=== PATIENT | female | born 1990 | race Caucasian/White ===

== ENCOUNTER 2023-11-20 21:17 | Emergency (ER) | payer OTHER, SELFPAY ==
[2023-11-20 21:19] VITALS: BP 151/94
--- NOTE | 2023-11-20 21:49 | ED.GENMED ---
History of Present Illness
General
Chief Complaint: Musculo-Skeletal Complaint
Source: patient
Exam Limitations: none
Time Seen by Provider: 11/20/23 21:32
Travel History
Have you had any contact with someone who has COVID-19?: No
Do you have any symptoms of coronavirus? Fever > 100 degrees, chills, cough, shortness of breath, sore throat, loss of taste or smell, muscle aches, or headache?: No
History of Present Illness
History of Present Illness:
This is a 33 year old female that comes in with c/o right hip pain going down the front of her let to the knee. Patient states that she went on a walk yesterday with her son that she always does. States that she didn't start with pain till later in
the night. 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 States that she has not fallen and there was no injury. States that she took Advil at 4:30pm but this did not help. States that she
is nauseated from the pain and has a headache. Denies any fever, chills, chest pain, SOB, vomiting, diarrhea, dizziness, urinary burning.
Past History
Past History
ED Past Medical History: Other (Headaches, )
ED Past Surgical History: None
Social History
Tobacco: Former smoker
Alcohol: Occasional
Personal:
Living: with family
Review of Systems
Review of Systems
All Other Systems: ROS reviewed and negative except as documented in HPI and ROS
Constitutional: Reports no symptoms; Denies fever or chills
EENT: Reports no symptoms
Respiratory: Reports no symptoms; Denies cough or trouble breathing
Cardiac: Reports no symptoms; Denies chest pain
ABD/GI: Reports nausea; Denies abdominal pain, vomiting or diarrhea
: Reports no symptoms; Denies dysuria, frequency or urgency
Musculoskeletal: Reports joint pain (Right hip pain)
Skin: Reports no symptoms
Neurological: Reports headache; Denies dizzy
Psychiatric: Reports no symptoms
Phy Exam
General Physical Exam
General Presentation: moderate distress
General age: appears stated age
General Skin: warm and dry
General Habitus: normal
General Mental: alert and tearful
General Hydration: appears well hydrated
ENT Exam
ENT Exam: TM's normal, pharynx normal and neck supple
Eye Exam
Eye Exam: EOMI
Cardiovascular Exam
Cardiovascular Exam: regular rate/rhythm, no edema, no murmur and normal peripheral pulses
Pulmonary Exam
Pulmonary Exam: lungs clear, no respiratory distress, no rales, chest non tender, no crackles, no rhonchi, no wheezing and no cough
Gastrointestinal Exam
Gastrointestinal Exam: normal bowel sounds, soft, no organomegaly, no pulsatile mass, non distended and tender (right lower abd tenderness with palpation)
Musculoskeletal Exam
Musculoskeletal Exam: other (Slight tenderness of the right posterior hip, Pain with flexion of the knee into the hip)
Skin Exam
Skin Exam: normal color, warm/dry, no rash and no petechia
Psychiatric Exam
Psychiatric Exam: normal mood/affect
Course
Orders/Labs/Results
Orders:
Orders
11/20/23 21:22
CR Femur - Right Min 2 Vw Urgent
Comment:
Reason For Exam: pain
CR Hip - RT w/wo Pel 2-3 Vw* Urgent
Comment:
Reason For Exam: pain
Include a pelvis x-ray?: No
11/20/23 21:46
0.9% Sodium Chloride 1000 ml [Nss] 1,000 ml IV BOLUS
HYDROmorphone [Dilaudid] 1 mg IV NOW STA
Ondansetron Injectable [Zofran] 4 mg IV NOW STA
US Pelvis Only (non-obstetric) Urgent
Comment:
Reason For Exam: Right lower abd pain
11/20/23 21:47
Test Result ONCE
11/20/23 21:48
CT Abd/pelvis W Iv Cont Urgent
Comment:
Reason For Exam: right lower abd pain
11/20/23 22:29
CRP [C-Reactive Protein] Urgent
Complete Blood Count/With Diff Urgent
Comprehensive Metabolic Panel Urgent
HCG, Serum Qualitative Screen Urgent
Lyme Progressive Urgent
Date Specimen was Collected: 11/20/23
Time Specimen was Collected: 22:29
Comment: ADDED
Sed Rate [Erythrocyte Sed Rate] Urgent
11/21/23 00:02
Add On- LAB Urgent
Tests Added?: Lyme Titer
11/21/23 00:08
Ketorolac [Toradol] 30 mg .ROUTE .STK-MED ONE
11/21/23 00:10
Ketorolac [Toradol] 30 mg IV NOW STA
Abnormal Lab Results
11/20/23
22:29
WBC 14.7 H 10^3/uL
(4.8-10.8)
Abs Immat Gran (auto) 0.1 H 10^3/uL
(0-0.05)
Absolute Neuts (auto) 11.2 H 10^3/uL
(1.4-6.5)
Absolute Monos (auto) 1.0 H 10^3/uL
(0.1-0.6)
Neutrophils % 76.0 H %
(42.2-75.2)
Lymphocytes % 14.3 L %
(20.5-51.1)
Glucose 113 H mg/dl
(70-99)
C-Reactive Protein 10.40 H mg/L
(0.0-10.00)
11/20/23 22:29
11/20/23 22:29
Leukocytosis ( consistent with prior labs), Glucose nonfasting. Sed rate normal at 7, CRP very slightly elevated. HCG negative.
Vital Signs
Initial and Last Documented VS:
Initial Vital Signs
Temp Pulse Resp BP Pulse Ox
98.3 F 90 18 151/94 99
11/20/23 21:19 11/20/23 21:19 11/20/23 21:19 11/20/23 21:19 11/20/23 21:19
Last Documented Vital Signs
Temp Pulse Resp BP Pulse Ox
98.4 F 64 14 122/73 96
11/20/23 23:46 11/21/23 00:45 11/21/23 00:45 11/21/23 00:00 11/21/23 00:45
MDM/Problems Addressed
Differential Diagnosis Includes:
Appendicitis. Ovarian Torsion. Hip fracture
MDM/Problems Addressed:
This is a 33 year old female that comes in with r/o right hip pain. States that the pain started yesterday in the evening. Today she had a hard time getting up and that the pain is not any better after advil. States that there was no fall or injury.
Will check labs, US and CT scan of abd. IV fluids and pain medication.
Back into see patient. Explained that her Ct is negative for appendicitis and otherwise normal. US is negative for any torsion or acute process. Explained to patient that her X-rays were also normal. This may be a pulled groin muscle. Patient to
rest and use Ibuprofen 600mg every 6 hours with food and alternate with Tylenol 1000mg every 6 hours for pain. Follow up with he PCP and/or regulatory compliance specialist. Patient to return with any fever, increased or changing pain.
Chronic conditions affecting care:
NA
Acute Exacerbation and/or Progression of Chronic Illness:
NA
*Radiology
Radiology exam reviewed: radiology read reviewed (US night hawk-Transabdominal pelvic ultrasound No comparison exam. Uterus and ovaries are normal in contour and echogenicity. Endometrial canal measures 2.2mm. Ovarian blood flow present bilaterally.
CT abd/pelvis night hawk- Normal appendix. Gallbladder is unremarkable. No bowel or renal ) and other (CT cont- or renal obstructionl Uterus and adnexa are unremarkable. NO free air or free fluid. Small fat-containing umbilical hernia. )
*Pulse Oximetry
Patient hypoxic: no
*EKG
Interpreted by ED Provider?: NA
Rate: EKG- N/A
*Mingler Operator Interpretation
Rate: Mingler Operator- N/A
*Critical Care Note
Total Time (30-74mins, 75-104mins- exclusive of procedures): Not Applicable
ED Attending Note
-
Portions of this chart may have been created with voice recognition software.� Occasional wrong word or��sound alike� substitutions may have occurred due to the inherent limitations of voice recognition software.
Discharge Plan
Departure
Patient Disposition: Home (Routine Discharge)
Date of Disposition: 11/21/23
Time of Disposition: 00:32
Patient with high blood pressure during this ER visit?: No
Condition: Good
Covid-19: Not Applicable
Discharge Problem:
Acute pain of right hip
Instructions: Hip Pain ED
Prescriptions:
No Action
Vitamin 1 EACH tablet
1 tab PO DAILY
sennosides-docusate sodium [Stool Softener-Stimulant Laxat] 8.6-50 mg Tablet
1 tab PO DAILYPRN PRN (Reason: constipation) Qty: 0 0RF
ibuprofen 600 mg Tablet
400 mg PO Q4HPRN PRN (Reason: moderate pain/cramps) Qty: 0 0RF
acetaminophen 325 mg Tablet
650 mg PO Q4HPRN PRN (Reason: mild pain) Qty: 0 0RF
Referrals:
UNKNOWN - PT DOES,NOT KNOW [Unknown Provider] -
Activity Restrictions/Additional Instructions:
As discussed, your blood work shows that your White blood cell count is elevated but this goes along with your prior labs. Your X-rays are negative. Your US is negative for any ovarian torsion and otherwise is normal. Your CT is negative for
appendicitis and otherwise normal. This may be a pulled groin muscle. Please use Tylenol 1000mg every 6 hours for pain and alternate with Ibuprofen 600mg every 6 hours with food. Follow up with the Family doctor for recheck or the Orthopedic
specialist. You have had a Lyme titer sent and if this would come back positive, you will be called. IF YOU HAVE INCREASED OR CHANGING PAIN, FEVER, OR YOU HAVE ANY OTHER CONCERNS PLEASE RETURN TO THE EMERGENCY ROOM.
Interventions
Interventions:
*Risk Screen - Suicide Last Done: 11/20/23 21:19
*General Assessment Last Done: 11/20/23 21:19
*Neglect/Abuse Screening Last Done: 11/20/23 21:19
ED- Fall Risk Assessment Last Done: 11/21/23 01:05
*Nursing Disposition Last Done: 11/21/23 01:05
ED-Musculoskeletal Assessment Last Done: 11/20/23 23:46
Discharge Date and Time
Discharge Date/Time: 11/21/23 01:08
Print Language: BENGALI
[2023-11-20] MEDS: DILAUDID 1 MG IV (22:29)
[2023-11-20] MEDS: ZOFRAN 4 MG IV (22:29)
[2023-11-20 22:34] VITALS: BP 126/81
[2023-11-20 22:38] LABS: % Basophils 0.7 % (0-2); % Eosinophils 1.5 % (0-6); % Immature Granulocytes 0.5 % (0-0.5); % Lymphocytes 14.3 % (20.5-51.1); Absolute Basophils 0.1 10^3/uL (0-0.2); Absolute Eosinophils 0.2 10^3/uL (0-0.7); Absolute Immature Granulocytes 0.1 10^3/uL (0-0.05); Absolute Lymphocytes 2.1 10^3/uL (1.2-3.4); Absolute Neutrophils 11.2 10^3/uL (1.4-6.5); Hematocrit 37.6 % (37.0-47.0); Mean Corp Hgb Conc. 34.6 g/dL (33.0-37.0); Mean Corpuscular Hgb 29.8 pg (27.0-31.0); Mean Corpuscular Volume 86.2 fL (81.0-99.0); Nucleated Red Blood Cells % 0 %; Platelet Count 266 10^3/uL (130-400); Red Blood Cell Count 4.36 10^6/uL (4.20-5.40); Red Cell Dist. Width 13.4 % (11.5-14.5); White Blood Cell Count 14.7 10^3/uL (4.8-10.8)
[2023-11-20 22:49] LABS: HCG, Serum Qualitative Screen Negative
[2023-11-20 22:53] LABS: ALT (SGPT) 15 U/L (0-35); AST (SGOT) 28 U/L (14-36); Albumin 4.7 g/dl (3.5-5.0); Alkaline Phosphatase 71 U/L (38-126); Blood Urea Nitrogen 9 mg/dl (7-17); Calcium 9.9 mg/dl (8.4-10.2); Carbon Dioxide 24 mmol/L (22-30); Chloride 104 mmol/L (98-107); Glucose 113 mg/dl (70-99); Potassium 4.3 mmol/L (3.5-5.1); Sodium 139 mmol/L (135-145); Total Bilirubin 0.4 mg/dl (0.2-1.3); Total Protein 7.8 g/dl (6.3-8.2); eGFR > 60.00
[2023-11-20 23:36] LABS: Erythrocyte Sed Rate 7 mm/hour (0-20)
[2023-11-20] MEDS: NSS 1000 IV (23:40)
[2023-11-20 23:42] VITALS: BP 123/74
[2023-11-20 23:46] VITALS: BP 123/74
[2023-11-21] VITALS: BP 122/73
[2023-11-21] MEDS: TORADOL 30 MG IV (00:11)
[2023-11-22 14:14] LABS: Lyme Antibody Screen, EIA Negative (Negative)
== END 2023-11-21 01:08 | disposition home or self-care (01) ==
LOC: EMR 21:17
PROVIDERS: Clinical Nurse Specialist Family Health; EMERGENCY PHYSICIAN Emergency Medicine; FAMILY PHYSICIAN Nurse Practitioner Family
DX: M25.551 Pain in right hip (principal); R10.31 Right lower quadrant pain; R51.9 Headache, unspecified; R11.0 Nausea; K42.9 Umbilical hernia without obstruction or gangrene; Z87.891 Personal history of nicotine dependence; Z88.2 Allergy status to sulfonamides
CPT/HCPCS: 99285; 96375 ×2; 96361; 96374; 73502; 73552; 74177; 76856; 80053; 84703; 85025; 85652; 86140; 86618; Q9967